=== PATIENT | female | born 1985 | race Caucasian/White ===

== ENCOUNTER 2018-05-19 12:52 | Emergency (ER) | payer SELFPAY ==
[~2018-05-19] VITALS: Ht 170.2 cm; Wt 54.4 kg
[2018-05-19] MEDS ORDERED: VITAMINS (13:16)
--- NOTE | 2018-05-19 13:48 | Emergency Room Report ---
History of Present Illness General Chief Complaint: General Complaint Source: Patient Present Illness HPI 32-year-old female patient presents ER complaining of lymphadenopathy past 2 weeks. reports lymphadenopathy has worsened in the last 2 days. States lymphadenopathy has been palpable previously in the past. Patient reports lymphadenopathy is not painful and throughout neck. Denies recent illness or injury. Denies fever, chest pain, shortness breath, abdominal pain. Denies other acute symptoms. reports bruising near left eye, states that occurred prior to onset of lymphadenopathy, states she bumped into a door. Also reports lip irritation from "Lip tattoo", no tattoo visualized, states that this appeared after lymphadenopathy had already been present. Reports she bumped her face on a door. Denies vomiting, vision changes, loss of consciousness. Allergies: Coded Allergies: No Known Allergies (Unverified , 05/19/18) Patient History Past Medical History: see triage record Last Menstrual Period: April Reviewed Nursing Documentation: PMH: Agreed; PSxH: Agreed Nursing Documentation-PMH Past Medical History: No Stated History Review of Systems All Other Systems: negative except mentioned in HPI Physical Exam Vital Signs Date Time Temp Pulse Resp B/P (MAP) Pulse Ox O2 Delivery O2 Flow Rate FiO2 05/19/18 13:10 98.8 71 16 115/82 97 Room Air 98.8 Sp02 EP Interpretation: reviewed, normal General Appearance: well appearing, no apparent distress, alert, GCS 15, non- toxic Head: normocephalic, atraumatic Eyes: bilateral eye normal inspection, bilateral eye PERRL ENT: hearing grossly normal, normal pharynx, no angioedema, normal voice, TMs + canals normal, uvula midline, moist mucus membranes, other - upper middle lip : mild swelling and crusting noted, no open lesion or draining, no vesicles or blistering Neck: full range of motion Respiratory: lungs clear, normal breath sounds, no rhonchi, no respiratory distress, no accessory muscle use, no wheezing, speaking full sentences Cardiovascular #1: regular rate, rhythm, no edema Musculoskeletal: back normal, digits/nails normal, gait/station normal, normal range of motion, non-tender Neurologic: alert, oriented x3, responsive, ammonia nitrate operator III-XII nml as tested, motor strength/tone normal, sensory intact Psychiatric: mood/affect normal Skin: other - mild ecchymosis near left eye, no bony depression Medical Decision Making PA Attestation Dr. Gupta is my supervising Physician whom patient management has been discussed with. Diagnostic Impression: Primary Impression: Lymphadenopathy ER Course Pt. presents to the ED c/o lymphadenopathy. Multiple differentials considered. Vital signs: are WNL, pt. is afebrile ER COURSE: Submental lymphadenopathy palpable on physical examination, patient denies tenderness, no other palpable lymphadenopathy. Patient denies recent illness or fever. No oral lesions or infections noted, no gum erythema or edema, no edema of bilateral TMs were ear canals, lungs clear to auscultation. No tonsillar exudates or pharyngeal erythema or uvular deviation or stridor, low suspicion for peritonsillar abscess or strep pharyngitis. Patient denies sore throat. Patient needs follow up outpatient with primary care provider to discuss need for biopsy and outpatient referral to rule out underlying malignancy or pathology. Upon reexamination, patient "Lip tattoo" appears similar to healing cold sore, no tattoo visualized. Due to symptoms of submental lymphadenopathy increasing following Lip tattoo, lymphadenopathy may be related to lip sx. Patient reports lymphadenopathy is not painful but states mild "muscular type pain with" to deep palpation. Take Tylenol for swelling symptoms. States has been taking Tylenol, informed patient that may be why she does not have pain symptoms. Do not believe patient require abx at this time, patent afebrile, no signs of infection. Apply ice to affected areas to help with swelling and ecchymosis. Informed patient to continue with plans to followup for possible biopsy of lymph nodes. Provided patient with contact information for free and low cost health care clinics to establish care and discuss further evaluation at that time. If unable to establish care, [place] [facility] [place] [facility] [place]. Informed patient biopsy is an outpatient treatment. DISCHARGE: Rx provided for Tylenol At this time pt is stable for d/c to home. Patient is resting comfortably, in no acute distress, nontoxic appearing, talking without difficulty. Patient to take medications as instructed Will provide with patient care instructions and any necessary prescriptions. Care plan and follow-up instructions provided. Patient instructed to follow-up with primary care provider in 3 - 5 days. Patient questions asked and answered. Patient reports understanding and agreement to treatment plan. ER precautions given. Patient instructed to return to ER immediately for any new or worsening of symptoms including but not limited to increasing SOB, persistent fever, chest pain, intractable vomiting. - Please note that this Emergency Department Report was dictated using [employer] machine operator technology software, occasionally this can lead to erroneous entry secondary to interpretation by the dictation equipment. Last Vital Signs Date Time Temp Pulse Resp B/P (MAP) Pulse Ox O2 Delivery O2 Flow Rate FiO2 05/19/18 13:10 98.8 71 16 115/82 97 Room Air 98.8 Disposition: HOME, SELF-CARE Condition: Stable Scripts Acetaminophen* (TYLENOL EXTRA STRENGTH*) 500 Mg Tablet 500 MG ORAL Q8H PRN for Prn Headache/Temp > 101, #30 TAB 0 Refills Prov: Wojciech Oconnell 05/19/18 Patient Instructions: Lymphadenopathy Additional Instructions: Followup with primary care provider in 1-3 days. Discuss treatment referral for biopsy of lymphadenopathy. Followup with free and low cost health care clinics. Take medications as directed. Patient questions asked and answered. ER precautions given, patient instructed to return to ER immediately for any new or worsening of symptoms. Wojciech Oconnell May 19, 2018 13:48
[2018-05-19] MEDS ORDERED: TYLENOL EXTRA500 MG ORAL (13:54)
[2018-05-19 13:59] VITALS: BP 115/82
== END 2018-05-19 13:58 | disposition home or self-care (01) ==
LOC: EMR 13:30
DX: R59.0 Localized enlarged lymph nodes (principal)
CPT/HCPCS: 99283